=== PATIENT | female | born 1955 | race Hispanic/Latino ===

== ENCOUNTER 2017-11-05 21:21 | Emergency (ER) | payer OTHER, SELFPAY ==
[2017-11-05] MEDS: ALBUTEROL SULFATE 2.5 MG/0.5 ML INH NEB SOLN NEB ×4 (22:20→22:39)
== END 2017-11-05 23:25 | disposition home or self-care (01) ==
LOC: M ED 21:21
DX: J06.9 Acute upper respiratory infection, unspecified (principal); J45.909 Unspecified asthma, uncomplicated; K21.9 Gastro-esophageal reflux disease without esophagitis; Z79.899 Other long term (current) drug therapy
CPT/HCPCS: 71046

== ENCOUNTER 2017-11-18 20:51 | Emergency (ER) | payer OTHER, SELFPAY ==
[2017-11-19] MEDS: dexameTHASONE 20 MG/5 ML VIAL (J1100) IV ×2 (00:27)
[2017-11-19] MEDS: ALBUTEROL SULFATE 2.5 MG/0.5 ML INH NEB SOLN NEB ×4 (00:37→00:47)
== END 2017-11-19 02:55 | disposition home or self-care (01) ==
LOC: M ED 20:51
DX: J45.909 Unspecified asthma, uncomplicated (principal)
CPT/HCPCS: J1100

== ENCOUNTER → 2019-11-05 | Outpatient (CLI) | payer SELFPAY ==
[~2019-11-05] MED LIST: ALBU83IN NEB; COMBAER6 INH; NEBUMIS2 XX; PRED20TA PO; PROAAER10 INH; ZITHTAB PO; ZYRTEC PO
--- NOTE | 2019-11-05 10:35 | REPMRS ---
Patient History The patient states she has not had a clinical breast exam in over a year. Patient is postmenopausal. No known family history of cancer. No Hormone Replacement Therapy 3D TOMOSYNTHESIS WAS PERFORMED. [facility] lifetime risk for breast cancer is 5.7%. [facility] [place]. Digital Woman Screen Mammo: November 05, 2019 - Exam #: [id number] Bilateral CC and MLO view(s) were taken. Technologist: Catalina Mayen, Technologist Prior study comparison: 2007, bilateral screening mammogram. FINDINGS: The breast tissue is heterogeneously dense. This may lower the sensitivity of mammography. There is a moderate amount of residual fibroglandular tissue which is fairly symmetric. There is no dominant mass, areas of architectural distortion, or clustered microcalcification typical of malignancy. Assessment: BI-RADS/ACR category 1 mammogram. Negative Mammogram. Recommendation Routine screening mammogram in 1 year (for women over age 40). This mammogram was interpreted with the aid of an FDA-approved computer-aided dectection system. Electronically Signed By: Truong Adams MD 11/05/19 [id number]
== END ==
LOC: M WHC 08:57
PROVIDERS: ATTEND Family Medicine
DX: Z12.31 Encounter for screening mammogram for malignant neoplasm of breast (principal)